=== PATIENT | female | born 1950 | race Caucasian/White ===

== ENCOUNTER 2016-07-30 09:04 | Inpatient (IN) ==
--- NOTE | 2016-07-30 09:37 | Emergency Department Note ---
Disposition Clinical Impression: Atrial fibrillation with rapid ventricular response, Weakness GI bleed Qualifiers: GI bleed type/associated pathology: unspecified gastrointestinal hemorrhage type Qualified Code(s): K92.2 - Gastrointestinal hemorrhage, unspecified Disposition: Admitted As Inpatient Condition: Good Time of Disposition: 12:58 Weakness HPI - General Chief complaint: ED Weakness Stated complaint: weakness Time Seen by Provider: 07/30/16 09:17 Source: patient Mode of arrival: ambulatory Limitations: no limitations Nursing Notes Reviewed: Yes Vital Signs Reviewed: Yes - History of Present Illness HPI Narrative: 66-year-old female history of atrial fibrillation on Coumadin and rate controlled presents to the ED with weakness. Patient states yesterday while at a bridal shower she was sitting at rest when she felt her heart racing, diaphoretic and nauseated while at rest. She denies any chest pain at that time. She also felt weak in her legs. Reports last time she had similar symptoms was back in December 2014 when she first had atrial fibrillation and needed admission for rate control. She follows with Dr. Palafox and has her INR' s checked frequently. No changes in her metoprolol or Cardizem. Denies any fever, recent illness, cough, shortness of breath. She also reports since she has noticed black tarry stools. She did eat cake with black icing and initially thought this may be due to the food coloring but continues to have black stools last 4 days. Denies any lightheadedness, abdominal pain or loss of consciousness. Currently she is in atrial fibrillation HR 110-120s, normally is in 70s. Last time 01/2015 she had a [place] which reveals a JAMEOSN thrombus with EF 50%. Pain Scale: 0 - Related Data Home Medications Medication Instructions Recorded Confirmed Cholecalciferol (Vitamin D3) 1,000 unit PO DAILY 05/10/15 07/30/16 [Vitamin D] Furosemide [Lasix] 20 mg PO DAILY PRN 05/10/15 07/30/16 Diltiazem HCl [Diltiazem 24Hr Cd] 360 mg PO DAILY 07/30/16 07/30/16 Warfarin [Coumadin] 4 mg PO QPM 07/30/16 07/30/16 Previous Rx's Medication Instructions Recorded Metoprolol [Lopressor] 100 mg PO BID #42 tablet 01/01/15 Allergies Allergy/AdvReac Type Severity Reaction Status Date / Time alprazolam [From Xanax] Allergy Anaphylaxis Verified 12/28/14 01:18 Amoxicillin [From Trimox] Allergy Anaphylaxis Verified 07/30/16 13:58 All systems ED: reviewed and negative except as stated. Constitutional: Reports: chills. Denies: fever ENT ED: Denies: congestion Cardiovascular: Denies: chest pain, palpitations, dyspnea on exertion Respiratory: Denies: cough, dyspnea Gastrointestinal: Reports: nausea, melena. Denies: abdominal pain, vomiting, diarrhea, hematochezia Genitourinary: Denies: urgency, dysuria, frequency Integumentary: Denies: rash, abrasion Neurological: Reports: weakness. Denies: headache Past Medical History - Past Medical History Attestation: Yes The following information was validated with the patient. Source: patient Medical history: Reports: atrial fibrillation, GERD, hypertension, renal disease Surgical history: Reports: no surgical history Psychiatric history: Reports: anxiety KEY PERSON history: Reports: no KEY PERSON history - Social History Smoking Status: Never smoker Smokeless Tobacco Status: No Alcohol use: Reports: none Drug use: Reports: none Physical Exam - General Limitations: no limitations General appearance: alert, in no apparent distress - Head Head exam: atraumatic, normocephalic, normal inspection - Eye Eye exam: Present: normal appearance, PERRL, EOMI - ENT ENT exam: normal exam, normal oropharynx, mucous membranes moist - Neck Neck exam: Present: normal inspection, full ROM, trachea midline - Chest Chest inspection: Present: normal inspection, symmetric chest wall rise - Respiratory Respiratory exam: Present: normal lung sounds bilaterally. Absent: respiratory distress, wheezes - Cardiovascular Cardiovascular exam: Present: tachycardia, irregular rhythm, normal heart sounds - Abdominal Exam Abdominal exam: Present: soft, Non-Tender, normal bowel sounds. Absent: tenderness, distention, guarding, rebound, rigidity - Extremities Exam Extremities exam: Present: normal inspection, full ROM, normal capillary refill , pedal edema (+1 BILATERALLY). Absent: tenderness, calf tenderness - Neurological Exam Neurological exam: Present: alert, oriented X3 - Psychiatric Psychiatric exam: Present: normal affect, normal mood - Skin Skin exam: Present: warm, dry, intact, normal color Course Course Narrative: 66-year-old female history of atrial fibrillation presents to ED with weakness. Patient has had an episode of palpitations, nausea, weakness. She is currently in atrial fibrillation with rapid ventricular response rate 108 as high as 120s. Patients awake alert and oriented to person place and time. Heart is irregularly irregular. Lungs are clear to auscultation bilaterally. Abdomen is soft nontender nondistended. On rectal exam she has normal tone with dark tarry stool. Fecal hemoccult sent down for testing. Will try to get her rate controlled and talk to cardiology. We will get basic labs for arrhythmia work up. Topronin, TSH, CBC, PT/INR. - Reevaluation(s) Reevaluation #1: Hemoglobin 10.7. Her last hemoglobin a year ago was 14.1. INR is therapeutic at 3. Her stool hemoccult is positive. Rate is controlled at 80 without any medications here. She reports taking her metoprolol and cardiazem earlier today. Currently awaiting PICC team for midline. Due to sudden onset of symptoms this week, will admit for GI bleed and Afib. Currently HR is 90-100 without any rate control here after initially presenting 110-120s, normally sits around 70-80s she reports. Time: 12:50 Reevaluation #2: Bed assignment 2NE26. Dr. Alejandra came down to evaluate patient for admission. HR currently 110-120s now. Will start cardiazem drip with bolus for better rate control. Patient does not have any palpitations at this time. Time: 15:59 - Consultations Consultation #1: Spoke with on-call hospitalist samuel Laguna to admit for acute GI bleed, atrial fibrillation c RVR, and weakness. No further orders at this time Vitals remain stable, HR 80-90s. Time: 12:55 Vital Signs Temperature 98.1 F 07/30/16 09:11 Pulse Rate 115 07/30/16 09:11 Respiratory Rate 18 07/30/16 09:11 Blood Pressure 120/98 07/30/16 09:11 O2 Sat by Pulse Oximetry 98 07/30/16 09:11 Temperature 98.1 F 07/30/16 09:11 Pulse Rate 185 07/30/16 14:32 Respiratory Rate 20 07/30/16 15:01 Blood Pressure 96/71 07/30/16 15:01 O2 Sat by Pulse Oximetry 99 07/30/16 14:32 Oxygen Delivery Oxygen Delivery Room Air Weakness - Medical Records Medical records reviewed: Yes I reviewed the patient's medical records. - Lab Data Lab results reviewed: Yes I reviewed the patient's lab results. Result diagrams: 07/30/16 10:27 07/30/16 10:27 Lab Results 07/30/16 07/30/16 07/30/16 Range/Units 10:22 10:27 10:27 WBC 7.3 (4.3-11.1) K/mcL RBC 3.64 L (3.82-4.97) M/mcL Hgb 10.7 L (11.5-15.4) g/dL Hct 32.4 L (35.3-44.9) % MCV 89.0 (83.0-100.0) fL MCH 29.4 (28.0-33.3) pg MCHC 33.0 (31.6-35.5) g/dL RDW 13.3 (11.5-14.5) % Plt Count 172 (140-400) K/mcL MPV 12.4 (9.4-12.4) fL Immature Gran % 0.6 (0-4) % Seg Neutrophils % 76.6 % Lymphocytes % 17.1 % Monocytes % 4.5 % Eosinophils % 0.6 % Basophils % 0.6 % Neutrophils # 5.6 (1.6-8.9) K/mcL Lymphocytes # 1.2 (0.6-4.6) K/mcL Monocytes # 0.3 (0.0-1.3) K/mcL Eosinophils # 0.0 (0.0-0.6) K/mcL Basophils # 0.0 (0.0-0.2) K/mcL PT 34.0 H (9.4-12.1) Seconds INR 3.0 APTT 35.0 (26.0-36.0) Seconds Sodium (136-145) mEq/L Potassium (3.5-4.5) mEq/L Chloride (98-109) mEq/L Carbon Dioxide (19-29) mEq/L BUN (7-20) mg/dL Creatinine (0.57-1.11) mg/dL Est GFR ( Amer) (> 60) Est GFR (Non-Af Amer) (> 60) BUN/Creatinine Ratio (6-26) Glucose (70-99) mg/dL Calculated Osmolality (280-300) Calcium (8.6-10.8) mg/dL Troponin I (0-0.03) ng/mL TSH (0.350-4.840) mcIU/mL Stool Occult Blood Positive A (Negative) 07/30/16 07/30/16 Range/Units 10:27 10:27 WBC (4.3-11.1) K/mcL RBC (3.82-4.97) M/mcL Hgb (11.5-15.4) g/dL Hct (35.3-44.9) % MCV (83.0-100.0) fL MCH (28.0-33.3) pg MCHC (31.6-35.5) g/dL RDW (11.5-14.5) % Plt Count (140-400) K/mcL MPV (9.4-12.4) fL Immature Gran % (0-4) % Seg Neutrophils % % Lymphocytes % % Monocytes % % Eosinophils % % Basophils % % Neutrophils # (1.6-8.9) K/mcL Lymphocytes # (0.6-4.6) K/mcL Monocytes # (0.0-1.3) K/mcL Eosinophils # (0.0-0.6) K/mcL Basophils # (0.0-0.2) K/mcL PT (9.4-12.1) Seconds INR APTT (26.0-36.0) Seconds Sodium 140 (136-145) mEq/L Potassium 4.0 (3.5-4.5) mEq/L Chloride 107 (98-109) mEq/L Carbon Dioxide 25 (19-29) mEq/L BUN 45 H (7-20) mg/dL Creatinine 1.09 (0.57-1.11) mg/dL Est GFR ( Amer) > 60 (> 60) Est GFR (Non-Af Amer) 50 L (> 60) BUN/Creatinine Ratio 41 H (6-26) Glucose 102 H (70-99) mg/dL Calculated Osmolality 302 H (280-300) Calcium 9.2 (8.6-10.8) mg/dL Troponin I 0.00 (0-0.03) ng/mL TSH 1.639 (0.350-4.840) mcIU/mL Stool Occult Blood (Negative) - Radiology Data Radiology results reviewed: Yes I reviewed the patient's radiology results. Chest X-Ray 07/30/16 09:30 IMPRESSION: No acute cardiopulmonary process. Stable chest x-ray. D/ / Ping Aragon MD / Ping Aragon MD Interpreting Provider: Ping Aragon MD - EKG Data EKG attestation: Yes I reviewed and interpreted this EKG. EKG results narrative: EKG performed 919 atrial fibrillation with rapid ventricular response 108 beats per minute. Rate: tachycardia Rhythm: A.Fib Interpretation: no acute changes Critical Care Time Critical Care Time: Yes Total Critical Care Time: 35 Attestation: Critical care time 35 minutes managing patient's A. fib with RVR and GI bleed. Attestation Statement - Attestation Attestation: Patient was seen with resident physician. I reviewed the history, physical, assessment and plan, and agree with the findings. I also personally evaluated this patient and had [id number] time with this patient. 66-year-old female presents emergency Department with atrial fibrillation. Patient states she has had A. fib for some time, has had a rapid response last time in 2013. She says symptoms are of rapid heartbeat combined with sweating. She said she had 2 episodes one lasted yesterday and then once again today. She said she took her morning medicines hoping she will feel better but it is not resolved her issues. She said the swelling has dissipated but she still feels her heart going faster than it usually does. She denies chest pain or short of breath. She did nausea without vomiting. On examination ENT is unremarkable. Heart tachycardic irregular irregular rhythm. [place] with atrial fibrillation. Lungs are clear. Abdomen is soft and nontender. Extremities minimal swelling of the ankles which is not new per patient. Neurologically patient is intact. We will do workup for atrial fibrillation. We will need to get a midline IV as she is a difficult IV stick and requires medication to control her rate. Workup revealed decreased H&H from prior testing, and Hemoccult-positive stool. Her rate was controlled with Cardizem. Hemodynamically she did well on the emergency department but with a GI bleed and A. fib she required hospitalization. Critical care time was 35 minutes to manage. Blood pressure was stable throughout her stay. Hospitalist was notified and admission arranged. I agree with the resident physician assessment and plan.
[2016-07-30 10:52] LABS: Basophils % 0.6 %; Eosinophils % 0.6 %; Hematocrit 32.4 % (35.3-44.9); Hemoglobin 10.7 g/dL (11.5-15.4); Immature Granulocytes % 0.6 % (0-4); Lymphocytes # 1.2 K/mcL (0.6-4.6); Lymphocytes % 17.1 %; Mean Corpuscular Hemoglobin 29.4 pg (28.0-33.3); Mean Platelet Volume 12.4 fL (9.4-12.4); Monocytes # 0.3 K/mcL (0.0-1.3); Monocytes % 4.5 %; Neutrophils # 5.6 K/mcL (1.6-8.9); Platelet Count 172 K/mcL (140-400); Red Blood Count 3.64 M/mcL (3.82-4.97); Red Cell Distribution Width 13.3 % (11.5-14.5); Segmented Neutrophils % 76.6 %
[2016-07-30 11:04] LABS: BUN/Creatinine Ratio 41 (6-26); Blood Urea Nitrogen 45 mg/dL (7-20); Calcium 9.2 mg/dL (8.6-10.8); Carbon Dioxide 25 mEq/L (19-29); Chloride 107 mEq/L (98-109); Glucose 102 mg/dL (70-99); Osmolality,Calculated 302 (280-300); Sodium 140 mEq/L (136-145); eGFR For African Americans > 60 (> 60); eGFR For Non-African Americans 50 (> 60)
[2016-07-30 11:27] LABS: Thyroid Stimulating Hormone 1.639 mcIU/mL (0.350-4.840)
[2016-07-30] MEDS ORDERED: 0.9 % Sodium Chloride 1,000 ML IVC ONE (13:09)
[2016-07-30] MEDS ORDERED: Naloxone 0.4 MG/ML INJ IVP PRN (18:05)
[2016-07-30] MEDS ORDERED: *HR* Morphine 2 MG/ML SYRINGE IVP PRN (18:05)
--- NOTE | 2016-07-30 18:18 | Internal Med History&Physical ---
Date of Encounter: 07/30/16 Time of Encounter: 18:14 Assessment and Plan (1) GI bleed Status: Acute GI Bleed.: NOted that stool occult is positive but there is drop in Hb 14.1 to 10.7 patient on Coumadin for Afib INR 3 Plan: - admit as inpatient. - 2 wide bore IV - IV fluids 70cc/hr - IV PPI 40 mg BID - Transfuse 4 FFP. - GI consult ( spoke with Dr Linder) - Stop Coumadin -DVT prophylaxis : SCD Qualifiers: GI bleed type/associated pathology: unspecified gastrointestinal hemorrhage type Qualified Code(s): K92.2 - Gastrointestinal hemorrhage, unspecified (2) Atrial fibrillation Status: Acute on cardizem drip oral BB Qualifiers: Atrial fibrillation type: chronic Qualified Code(s): I48.2 - Chronic atrial fibrillation (3) Essential hypertension Status: Chronic stable and will resume home meds Internal Medicine - H&P: HPI Chief complaint: GI bleed Admitted From: Emergency Dept Plans for Post Hospital Care: Home History of present illness: PCP: Dr Lay aviation mechanic : (mrs) Clay Brief PMH: HTN, Afib HPI:Patient states yesterday while at a bridal shower she was sitting at rest when she felt her heart racing, diaphoretic and nauseated while at rest. She denies any chest pain at that time. She also felt weak in her legs. she noticed since she has noticed black tarry stools. work up in ER: basic labs, EKG reason for hospitalization : Lower GI bleed. family History : non contributory. Past Med Surg Social Fam HX - Past Medical History Medical history: atrial fibrillation, GERD, hypertension, renal disease Psychiatric history: anxiety - Past Surgical History Surgical History: no surgical history - Social History Smoking Status: Never smoker Smokeless Tobacco Status: No Alcohol use: none Drug use: none - Family History Mother Adopted: No Family Member Ethnicity: Non- Living Status: Hx Family Cardiac Disorders: Yes Internal Medicine - H&P: Meds Metoprolol [Lopressor] 100 mg PO BID #42 tablet 01/01/15 [Rx] Cholecalciferol (Vitamin D3) [Vitamin D3] 1,000 unit PO DAILY 05/10/15 [History] Diltiazem HCl [Diltiazem 24Hr Cd] 360 mg PO DAILY 07/30/16 [History] Omeprazole [PriLOSEC] 40 mg PO DAILY@0630 #30 capsule. 08/03/16 [Rx] Sucralfate [Carafate] 1 gm PO 0730,1630 #30 tablet 08/03/16 [Rx] Allergies alprazolam [From Xanax] Allergy (Verified 12/28/14 01:18) Anaphylaxis Amoxicillin [From Trimox] Allergy (Verified 07/30/16 13:58) Anaphylaxis All Systems PM: A 10-system review of systems was performed and is negative for pertinent findings except as documented above in the HPI. - Constitutional Constitutional: no chills, no fever(s), no night sweats - EENT Eyes: no change in vision, no discharge, no pain, no photophobia Ears: no ear discharge, no ear pain, no tinnitus Nose, mouth and throat: no dysphagia, no nasal discharge, no neck pain, no sore throat - Cardiovascular Cardiovascular ROS IM: no chest pain, no diaphoresis, no dyspnea, no lightheadedness, no palpitations, no syncope - Respiratory Respiratory: no cough, no dyspnea, no wheezing, no excessive phlegm production - Gastrointestinal Gastrointestinal: no abdominal pain, no diarrhea, no hematemesis, no hematochezia, no melena, no nausea, no vomiting - Genitourinary Genitourinary: no change in urinary stream, no dysuria, no flank pain, no hematuria - Musculoskeletal Musculoskeletal ROS IM: no numbness, no tingling - Integumentary Integumentary IM: no rash, no unusual bruising - Neurological Neurological ROS: no confusion, no convulsions, no focal weakness, no numbness, no tingling, no tremor(s) - Hematologic/Lymphatic Hematologic/Lymphatic: no easy bruising - Constitutional Vitals: Temp Pulse Resp BP Pulse Ox 98.3 F 118 17 107/70 98 07/30/16 16:50 07/30/16 16:50 07/30/16 16:50 07/30/16 16:50 07/30/16 16:50 General appearance: Present: A&O X 3, pleasant, no acute distress, answers questions appropriately - Head Head exam: Present: atraumatic, normocephalic - Eye Eye exam: Present: PERRL, conjuntiva pink, sclera anicteric Pupils: Present: PERRL - Neck Neck exam general surgery: Present: supple, trachea midline. Absent: lymphadenopathy - Respiratory Respiratory exam: Present: CTAB. Absent: accessory muscle use, rales, rhonchi, wheezes - Cardiovascular Cardiovascular exam: Present: RRR, +S1, +S2. Absent: diastolic murmur, gallop, rubs, systolic murmur - GI/Abdominal GI/Abdominal exam: Present: normal bowel sounds, soft, no peritoneal signs. Absent: distended, tenderness - Extremities Exam Extremities exam: Present: warm, radial pulses palpable and symetrical. Absent : calf tenderness, cyanotic, pedal edema - Neurological Exam Neurological exam: Present: CN II-XII intact, oriented X3, no focal deficits. Absent: pronater drift, facial droop, speech deficit - Skin Skin exam: Present: dry, intact Internal Med - H&P Results - Labs CBC & Chem 7: 08/03/16 05:25 08/02/16 06:32
[2016-07-30 19:12] LABS: Basophils % 0.5 %; Eosinophils # 0.1 K/mcL (0.0-0.6); Eosinophils % 1.3 %; Hematocrit 28.7 % (35.3-44.9); Hemoglobin 9.4 g/dL (11.5-15.4); Immature Granulocytes % 0.3 % (0-4); Lymphocytes # 2.2 K/mcL (0.6-4.6); Lymphocytes % 35.2 %; Mean Corpuscular HGB Conc 32.8 g/dL (31.6-35.5); Mean Corpuscular Volume 88.6 fL (83.0-100.0); Mean Platelet Volume 12.3 fL (9.4-12.4); Monocytes # 0.4 K/mcL (0.0-1.3); Monocytes % 6.2 %; Neutrophils # 3.6 K/mcL (1.6-8.9); Platelet Count 151 K/mcL (140-400); Red Blood Count 3.24 M/mcL (3.82-4.97); Red Cell Distribution Width 13.3 % (11.5-14.5); Segmented Neutrophils % 56.5 %
[2016-07-30] MEDS: 0.9 % Sodium Chloride 1,000 ML IVC SCH (20:24)
[2016-07-30] MEDS: Metoprolol 100 MG TABLET PO SCH (20:24)
[2016-07-30] MEDS ORDERED: Acetaminophen 325 MG TABLET PO ONE (21:53)
[2016-07-30] MEDS ORDERED: Furosemide 20 MG/2 ML VIAL IVP ONE (21:53)
[2016-07-30] MEDS ORDERED: 0.9 % Sodium Chloride 250 ML ONE (23:12)
--- NOTE | 2016-07-31 03:56 | Electrocardiograph Report ---
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
[2016-07-31] MEDS ORDERED: 0.9 % Sodium Chloride 250 ML ONE ×3 (04:22→22:18)
[2016-07-31 04:50] LABS: Basophils % 0.3 %; Eosinophils # 0.1 K/mcL (0.0-0.6); Hematocrit 26.7 % (35.3-44.9); Hemoglobin 8.7 g/dL (11.5-15.4); Immature Granulocytes % 0.3 % (0-4); Lymphocytes # 1.7 K/mcL (0.6-4.6); Lymphocytes % 29.2 %; Mean Corpuscular HGB Conc 32.6 g/dL (31.6-35.5); Mean Platelet Volume 11.9 fL (9.4-12.4); Monocytes # 0.4 K/mcL (0.0-1.3); Monocytes % 6.8 %; Neutrophils # 3.6 K/mcL (1.6-8.9); Platelet Count 139 K/mcL (140-400); Red Cell Distribution Width 13.6 % (11.5-14.5); Segmented Neutrophils % 61.4 %
[2016-07-31 04:53] LABS: INR 2.2; Prothrombin Time 24.7 Seconds (9.4-12.1)
[2016-07-31 05:08] LABS: Alanine Aminotransferase 15 Units/L (0-55); Albumin 3.1 g/dL (3.5-5.0); Albumin/Globulin Ratio 1.2 (1.1-2.2); Alkaline Phosphatase 58 Units/L (38-126); Aspartate Amino Transferase 15 Units/L (5-34); BUN/Creatinine Ratio 25 (6-26); Bilirubin,Total 0.6 mg/dL (0.2-1.2); Calcium 8.3 mg/dL (8.6-10.8); Carbon Dioxide 25 mEq/L (19-29); Chloride 108 mEq/L (98-109); Chol/HDL Ratio 3.1 (0-4.9); Cholesterol 160 mg/dL (< 200); Globulin 2.6 g/dL (2.4-3.5); Glucose 92 mg/dL (70-99); HDL Cholesterol 51 mg/dL (40-59); LDL Cholesterol,Calculated 91 mg/dL (0-99); Magnesium 1.6 mg/dL (1.6-2.6); Osmolality,Calculated 299 (280-300); Phosphorous 3.3 mg/dL (2.3-4.7); Potassium 3.6 mEq/L (3.5-4.5); Sodium 142 mEq/L (136-145); Total Protein 5.7 g/dL (6.0-8.3); Triglycerides 88 mg/dL (< 150); eGFR For African Americans > 60 (> 60); eGFR For Non-African Americans 50 (> 60)
[2016-07-31 05:09] LABS: Blood Urea Nitrogen 27 mg/dL (7-20)
[2016-07-31] MEDS: Pantoprazole 40 MG VIAL IVP SCH ×2 (06:31→17:58)
[2016-07-31] MEDS: Metoprolol 100 MG TABLET PO SCH ×2 (09:47→20:08)
--- NOTE | 2016-07-31 12:08 | Gastroenterology Consult Note ---
<Ludin Davey Raquel - Last Filed: 07/31/16 12:02> Date of Encounter: 07/31/16 Time of Encounter: 10:20 - Assessment and plan (1) GI bleed Current Visit: Yes Status: Acute Assessment and plan: Continue to hold Coumadin. FOBT positive. Plan for EGD tomorrow to r/o esophagitis, gastritis, duodenitis, PUD, MW tear, or AVM once INR less than 1.5. INR 2.2 today and patient is receiving FFP. NPO at midnight Qualifiers: GI bleed type/associated pathology: unspecified gastrointestinal hemorrhage type Qualified Code(s): K92.2 - Gastrointestinal hemorrhage, unspecified (2) Melena Current Visit: Yes Status: Acute (3) Atrial fibrillation Current Visit: No Status: Acute Qualifiers: Atrial fibrillation type: chronic Qualified Code(s): I48.2 - Chronic atrial fibrillation (4) Anemia Current Visit: Yes Status: Acute Assessment and plan: Secondary to GI bleeding. Hemoglobin 10.7 on admission and 8.7 this morning. Continue to monitor CBC and transfuse PRBC as needed. Plan for EGD tomorrow. Qualifiers: Anemia type: iron deficiency Iron deficiency anemia type: chronic blood loss Qualified Code(s): D50.0 - Iron deficiency anemia secondary to blood loss (chronic) - Time Spent With Patient Total time spent is greater than 50% in coordination of care (as documented) at patient's floor/unit and/or counseling patient: GI History of Present Illness - Data of Consult Patient: new to practice Consult date: 07/31/16 Requesting Physician: Zohra Rivas MD - Consult Narrative Reason for consult: GI Bleed History of present illness: Ms. Tsai is a 66 year old female with PMHx of Afib-on Coumadin, GERD, and HTN who presented to the ED with weakness. She was at a bridal shower when she felt her heart racing, became diaphoretic and nauseated. She denied chest pain at that time but did report feeling weak in her legs. She denies fever, shortness of breath, hematemesis, abdominal pain, hematochezia. She does report melena since , but thought this was due to eating cake with black icing. She continued to have black stools for the past 4 days. Hgb 10.7 on admission and this morning Hgb 8.7. INR on admission 3, Coumadin has been held and INR 2.2 this morning. FOBT was positive. Procedures: Colonoscopy 06/28/2014 Dr. Lin with moderate diverticulosis in sigmoid colon, nonbleeding internal hemorrhoids. NSAIDs: None Anticoagulation: Coumadin Past Med Surg Social Fam HX - Past Medical History Medical history: atrial fibrillation, GERD, hypertension, renal disease Psychiatric history: anxiety - Past Surgical History Surgical History: no surgical history - Social History Smoking Status: Never smoker Smokeless Tobacco Status: No Alcohol use: none Drug use: none - Family History Mother Adopted: No Family Member Ethnicity: Non- Living Status: Hx Family Cardiac Disorders: Yes - Gastrointestinal Gastrointestinal: Present: as per HPI - Constitutional Constitutional: as per HPI - EENT Eyes: as per HPI Ears: Present: as per HPI Nose, mouth and throat: Present: as per HPI - Cardiovascular Cardiovascular ROS: Present: as per HPI - Respiratory Respiratory IM: Present: as per HPI - Genitourinary Genitourinary: Absent: change in color, Urinary frequency - Neurological ROS Neurological GI: Present: as per HPI - Hematologic/Lymphatic Hematologic/Lymphatic pediatric: Present: as per HPI - Musculoskeletal Musculoskeletal ROS GI: Present: as per HPI - Integumentary Integumentary GI: Present: as per HPI - Psychiatric ROS Psychiatric GI: Present: as per HPI - Endocrine Endocrine IM: Present: as per HPI - Constitutional Vitals: Temp Pulse Resp BP Pulse Ox 98.5 F 109 16 123/70 96 07/31/16 10:55 07/31/16 10:55 07/31/16 10:55 07/31/16 10:55 07/31/16 10:55 General appearance: Present: cooperative, A&O X 3, no acute distress, answers questions appropriately - Head Head exam: Present: atraumatic, normocephalic - Eye Eye exam: Present: normal appearance, sclera anicteric - ENT ENT exam: Present: mucous membranes moist - Neck Neck exam general surgery: Present: normal inspection, trachea midline - Respiratory Respiratory exam: Present: CTAB. Absent: rales, rhonchi - Cardiovascular Cardiovascular exam: Present: RRR, +S1, +S2 - GI/Abdominal GI/Abdominal exam: Present: soft, no peritoneal signs. Absent: distended, firm , guarding, tenderness - Rectal Rectal exam: Present: deferred - Extremities Exam Extremities exam: Present: warm - Neurological Exam Neurological exam: Present: no focal deficits - Psychiatric Psychiatric exam: Present: normal affect, normal mood - Skin Skin exam: Present: dry, intact, normal color, warm Results - Labs CBC & Chem 7: 07/31/16 04:35 07/31/16 04:35 Labs: Last Result Calcium 8.3 mg/dL (8.6-10.8) L 07/31/16 04:35 Troponin I 0.00 ng/mL (0-0.03) 07/31/16 04:35 Triglycerides 88 mg/dL (< 150) 07/31/16 04:35 Stool Occult Blood Positive (Negative) A 07/30/16 10:22 Entire Visit Hgb 8.7 g/dL (11.5-15.4) L 07/31/16 04:35 Hct 26.7 % (35.3-44.9) L 07/31/16 04:35 PT 24.7 Seconds (9.4-12.1) H 07/31/16 04:35 Total Bilirubin 0.6 mg/dL (0.2-1.2) 07/31/16 04:35 AST 15 Units/L (5-34) 07/31/16 04:35 ALT 15 Units/L (0-55) 07/31/16 04:35 - ABG ABG results: PT/INR, D-dimer PT 24.7 Seconds (9.4-12.1) H 07/31/16 04:35 Consult Discharge Plan - Plan Referrals: Xi Astudillo MD [Primary Care Provider] - 08/10/16 1:45 pm <Anabella Linder - Last Filed: 07/31/16 17:22> Date of Encounter: 07/31/16 Time of Encounter: 14:00 - Time Spent With Patient Total time spent is greater than 50% in coordination of care (as documented) at patient's floor/unit and/or counseling patient: GI History of Present Illness - Data of Consult Requesting Physician: Zohra Rivas MD - Consult Narrative History of present illness: Ms. Tsai is a 66 year old female - Constitutional Vitals: Temp Pulse Resp BP Pulse Ox 97.8 F 108 18 101/77 96 07/31/16 13:57 07/31/16 15:00 07/31/16 15:00 07/31/16 15:00 07/31/16 15:00 Results - Labs CBC & Chem 7: 07/31/16 04:35 07/31/16 04:35 Labs: Last Result Calcium 8.3 mg/dL (8.6-10.8) L 07/31/16 04:35 Troponin I 0.00 ng/mL (0-0.03) 07/31/16 04:35 Triglycerides 88 mg/dL (< 150) 07/31/16 04:35 Stool Occult Blood Positive (Negative) A 07/30/16 10:22 Entire Visit Hgb 8.7 g/dL (11.5-15.4) L 07/31/16 04:35 Hct 26.7 % (35.3-44.9) L 07/31/16 04:35 PT 24.7 Seconds (9.4-12.1) H 07/31/16 04:35 Total Bilirubin 0.6 mg/dL (0.2-1.2) 07/31/16 04:35 AST 15 Units/L (5-34) 07/31/16 04:35 ALT 15 Units/L (0-55) 07/31/16 04:35 - ABG ABG results: PT/INR, D-dimer PT 24.7 Seconds (9.4-12.1) H 07/31/16 04:35 - Attending Attestation I examined this patient and my medical decision-making was reviewed with the STATISTICAL CONSULTANT/PA/Advanced Practice Nurse/Resident Physician. I agree with the documented findings, disposition and treatment plan as described except to the extent set forth below.
[2016-07-31] MEDS: 0.9 % Sodium Chloride 1,000 ML IVC SCH (16:09)
[2016-07-31 17:26] LABS: INR 1.8; Prothrombin Time 19.5 Seconds (9.4-12.1)
[2016-07-31 17:27] LABS: % Iron Saturation 21 % (15-50); Iron 67 mcg/dL (50-170); Transferrin 228 mg/dL (180-382)
[2016-07-31 17:30] LABS: Basophils % 0.3 %; Eosinophils # 0.1 K/mcL (0.0-0.6); Eosinophils % 2.3 %; Hematocrit 22.1 % (35.3-44.9); Immature Granulocytes % 0.3 % (0-4); Lymphocytes # 1.3 K/mcL (0.6-4.6); Lymphocytes % 33.8 %; Mean Corpuscular HGB Conc 31.7 g/dL (31.6-35.5); Mean Corpuscular Volume 91.7 fL (83.0-100.0); Mean Platelet Volume 12.3 fL (9.4-12.4); Monocytes # 0.3 K/mcL (0.0-1.3); Monocytes % 6.3 %; Neutrophils # 2.3 K/mcL (1.6-8.9); Platelet Count 120 K/mcL (140-400); Red Blood Count 2.41 M/mcL (3.82-4.97); Red Cell Distribution Width 13.5 % (11.5-14.5)
[2016-07-31 17:48] LABS: Ferritin 49 ng/ml (5-204)
[2016-07-31] MEDS ORDERED: *HR* Phytonadione 10 MG/ML AMPUL SQ STA (17:59)
--- NOTE | 2016-07-31 18:00 | Internal Med Progress Note ---
Date of Encounter: 07/31/16 Time of Encounter: 10:00 - Assessment and plan (1) Anemia due to acute blood loss Current Visit: Yes Status: Acute Assessment and plan: Due to GI bleeding. Possibly caused by anticoagulation use. Will give 2 units PRBC transfusion, follow-up H&H (2) GI bleed Current Visit: Yes Status: Acute Assessment and plan: Patient has black stool and positive guaiac test. H&H has dropped. We will hold the Coumadin, give FFP 4, vitamin K 5 mg SC, PPI IV twice a day. GI consul on case and plan for EGD. Qualifiers: GI bleed type/associated pathology: unspecified gastrointestinal hemorrhage type Qualified Code(s): K92.2 - Gastrointestinal hemorrhage, unspecified (3) Melena Current Visit: Yes Status: Acute Assessment and plan: Due to GI bleeding (4) Atrial fibrillation Current Visit: No Status: Acute Assessment and plan: Rite is a generally controlled. Coumadin is on hold because of GI bleeding Qualifiers: Atrial fibrillation type: chronic Qualified Code(s): I48.2 - Chronic atrial fibrillation (5) Essential hypertension Current Visit: No Status: Chronic Assessment and plan: BP is at the lower side. Hold hypertension medications (6) DVT prophylaxis Current Visit: Yes Status: Acute Assessment and plan: EPCD - Time Spent With Patient 25 - 35 minutes - Subjective Interval history: Patient is a 66-year-old female admitted for GI bleeding. Her past medical history is significant for A. fib on Coumadin, hypertension. Patient was seen and examined. She denies dizziness or lightheaded. She has no vomiting. Patient has black stool. She was given FFP to correct Coumadin effect. Still active bleeding with hemoglobin dropped to 7. Will give 2 units PRBC. GI consul on case, plan for EGD tomorrow if INR is getting lower than 1.5. Will also give vitamin K 5 mg SC today. - Constitutional Vitals: Temp Pulse Resp BP Pulse Ox 97.8 F 108 18 101/77 96 07/31/16 13:57 07/31/16 15:00 07/31/16 15:00 07/31/16 15:00 07/31/16 15:00 General appearance: Present: A&O X 3, pleasant, no acute distress, answers questions appropriately - Head Head exam: Present: atraumatic, normocephalic - Eye Eye exam: Present: PERRL, conjuntiva pink, sclera anicteric Pupils: Present: PERRL - Neck Neck exam general surgery: Present: supple, trachea midline. Absent: lymphadenopathy - Respiratory Respiratory exam: Present: CTAB. Absent: accessory muscle use, rales, rhonchi, wheezes - Cardiovascular Cardiovascular exam: Present: irregular rhythm, +S1, +S2. Absent: diastolic murmur, gallop, rubs, systolic murmur - GI/Abdominal GI/Abdominal exam: Present: normal bowel sounds, soft, no peritoneal signs. Absent: distended, tenderness - Extremities Exam Extremities exam: Present: warm, radial pulses palpable and symetrical. Absent : calf tenderness, cyanotic, pedal edema - Neurological Exam Neurological exam: Present: CN II-XII intact, oriented X3, no focal deficits. Absent: pronater drift, facial droop, speech deficit - Skin Skin exam: Present: dry, intact Internal Medicine: Result - Labs CBC & Chem 7: 07/31/16 16:24 07/31/16 04:35 Labs: Short CBC 07/30/16 07/31/16 07/31/16 Range/Units 18:30 04:35 16:24 WBC 6.3 5.9 4.0 L (4.3-11.1) K/mcL Hgb 9.4 L 8.7 L 7.0 L D (11.5-15.4) g/dL Hct 28.7 L 26.7 L 22.1 L (35.3-44.9) % Plt Count 151 139 L 120 L (140-400) K/mcL Neutrophils # 3.6 3.6 2.3 (1.6-8.9) K/mcL BMP 07/31/16 04:35 Sodium 142 Potassium 3.6 Chloride 108 Carbon Dioxide 25 BUN 27 H D Creatinine 1.09 Glucose 92 Calcium 8.3 L Cardiac Enzymes 07/30/16 07/31/16 07/31/16 Range/Units 18:30 04:35 16:24 Troponin I 0.00 0.00 0.00 (0-0.03) ng/mL Liver Function 07/31/16 Range/Units 04:35 Total Bilirubin 0.6 (0.2-1.2) mg/dL AST 15 (5-34) Units/L ALT 15 (0-55) Units/L Alkaline Phosphatase 58 (38-126) Units/L Albumin 3.1 L (3.5-5.0) g/dL - ABG Interpretation ABG results: PT/INR, D-dimer PT 19.5 Seconds (9.4-12.1) H 07/31/16 16:24 - VTE Documentation of Mechanical Device: Graduated compression elastic hosiery Consult Discharge Plan - Plan Referrals: Xi Astudillo MD [Primary Care Provider] - 08/10/16 1:45 pm
[2016-07-31 18:25] LABS: Bilirubin,Urine Negative (Negative); Blood,Urine Negative (Negative); Clarity,Urine Clear (Clear); Color,Urine Yellow (Yellow); Glucose,Urine (UA) Normal (Normal); Ketones,Urine Trace mg/dL (Negative); Leukocyte Esterase,Urine Negative (Negative); Nitrite,Urine Negative (Negative); Protein,Urine Trace mg/dL (Neg-Trace); Specific Gravity,Urine 1.018 (1.010-1.025); Urobilinogen,Urine Normal (Normal)
[2016-07-31 18:29] LABS: Bacteria,Urine None Seen per hpf (None-Few); Hyaline Casts,Urine None Seen per lpf (None-Few); RBC,Urine 0-3 per hpf (0-3); Squamous Epithelial Cell,Urine Moderate per lpf (None-Few); WBC,Urine 0-3 per hpf (0-3)
[2016-08-01] MEDS: 0.9 % Sodium Chloride 1,000 ML IVC SCH (06:01)
[2016-08-01] MEDS: Pantoprazole 40 MG VIAL IVP SCH ×2 (06:01→16:19)
[2016-08-01 06:21] LABS: Basophils % 0.5 %; Eosinophils # 0.2 K/mcL (0.0-0.6); Eosinophils % 2.7 %; Hematocrit 32.1 % (35.3-44.9); Immature Granulocytes % 0.5 % (0-4); Lymphocytes # 2.2 K/mcL (0.6-4.6); Lymphocytes % 36.6 %; Mean Corpuscular HGB Conc 33.6 g/dL (31.6-35.5); Mean Corpuscular Hemoglobin 29.9 pg (28.0-33.3); Mean Corpuscular Volume 88.9 fL (83.0-100.0); Mean Platelet Volume 11.6 fL (9.4-12.4); Monocytes # 0.5 K/mcL (0.0-1.3); Monocytes % 8.3 %; Neutrophils # 3.1 K/mcL (1.6-8.9); Nucleated Red Blood Cells 0.3 /100 WBC (0); Platelet Count 143 K/mcL (140-400); Red Blood Count 3.61 M/mcL (3.82-4.97); Red Cell Distribution Width 13.5 % (11.5-14.5); Segmented Neutrophils % 51.4 %
[2016-08-01 06:26] LABS: Hemoglobin 10.8 g/dL (11.5-15.4)
[2016-08-01 06:34] LABS: BUN/Creatinine Ratio 15 (6-26); Calcium 8.6 mg/dL (8.6-10.8); Carbon Dioxide 22 mEq/L (19-29); Chloride 110 mEq/L (98-109); Glucose 93 mg/dL (70-99); Osmolality,Calculated 294 (280-300); Potassium 3.5 mEq/L (3.5-4.5); Sodium 142 mEq/L (136-145); eGFR For African Americans > 60 (> 60); eGFR For Non-African Americans > 60 (> 60)
[2016-08-01 06:38] LABS: Blood Urea Nitrogen 14 mg/dL (7-20)
[2016-08-01] MEDS: Metoprolol 100 MG TABLET PO SCH ×2 (09:13→20:13)
[2016-08-01 09:33] LABS: INR 1.7; Prothrombin Time 18.6 Seconds (9.4-12.1)
--- NOTE | 2016-08-01 12:12 | Anesthesia Evaluation PreOp ---
Date of Encounter: 08/01/16 Time of Encounter: 12:09 - Past History Planned Operation: EGD Cardiac History: HTN, Arrhythmia (Afib) Other Medical History: Renal, GERD, Other (GI bleed, Melena) Anesthesia History: Past Anesthesia (none) : No Alcohol Use: none Drug use: none Medications and Allergies Metoprolol [Lopressor] 100 mg PO BID #42 tablet 01/01/15 [Rx] Cholecalciferol (Vitamin D3) [Vitamin D] 1,000 unit PO DAILY 05/10/15 [History] Furosemide [Lasix] 20 mg PO DAILY PRN 05/10/15 [History] Diltiazem HCl [Diltiazem 24Hr Cd] 360 mg PO DAILY 07/30/16 [History] Warfarin [Coumadin] 4 mg PO QPM 07/30/16 [History] Allergies alprazolam [From Xanax] Allergy (Verified 12/28/14 01:18) Anaphylaxis Amoxicillin [From Trimox] Allergy (Verified 07/30/16 13:58) Anaphylaxis - Meds/Allergy Pre-op Review Medications Reviewed: Yes Allergies Reviewed: Yes Anesthesia Results - Labs 08/01/16 06:00 08/01/16 06:00 Stress 03/21/16 EF 69% mild mid apical ischemia Anesthesia Exam O2 Sat Weight 119.7 kg O2 Sat by Pulse Oximetry 97 O2 Sat by Pulse Oximetry 95 O2 Sat by Pulse Oximetry 96 O2 Sat by Pulse Oximetry 97 O2 Sat by Pulse Oximetry 96 O2 Sat by Pulse Oximetry 96 O2 Sat by Pulse Oximetry 97 O2 Sat by Pulse Oximetry 96 O2 Sat by Pulse Oximetry 96 O2 Sat by Pulse Oximetry 96 O2 Sat by Pulse Oximetry 98 O2 Sat by Pulse Oximetry 96 O2 Sat by Pulse Oximetry 97 Vital Signs Temp Pulse Resp BP Pulse Ox 98.1 F 115 18 120/98 98 07/30/16 09:11 07/30/16 09:11 07/30/16 09:11 07/30/16 09:11 07/30/16 09:11 Vital Signs/O2 Sat, Most Current Temp Pulse Resp BP Pulse Ox 97.8 F 101 16 131/82 97 08/01/16 07:00 08/01/16 07:00 08/01/16 07:00 08/01/16 07:00 08/01/16 07:00 Height: 5'5'' Weight: 263# NPO (# of Hours): > 8 hrs Pain Scale: 0 Pain Scale Used: Numeric (1 - 10) - HEENT Pupil (Motor): Pupils equal, EOMI
[2016-08-01] MEDS ORDERED: Lidocaine -MPF 2% 5 ML VIAL INFILT ONE (12:13)
[2016-08-01] MEDS ORDERED: *HR* Propofol 200 MG/20 ML VIAL IVP ONE (12:13)
[2016-08-01] MEDS: Diltiazem CD (24hr) 180 MG CAPSULE PO SCH (12:39)
[2016-08-01] MEDS ORDERED: SODIUM CHLORIDE/NAHCO3/KCL/PEG 4,000 ML SOLN.RECON PO ONE ×2 (13:32)
--- NOTE | 2016-08-01 17:31 | Internal Med Progress Note ---
Date of Encounter: 08/01/16 Time of Encounter: 10:00 - Assessment and plan (1) Anemia due to acute blood loss Current Visit: Yes Status: Acute Assessment and plan: Due to GI bleeding. Possibly caused by anticoagulation use. She was given 2 units PRBC transfusion, H&H improved (2) GI bleed Current Visit: Yes Status: Acute Assessment and plan: Patient has black stool and positive guaiac test. H&H has dropped. We will hold the Coumadin, give FFP 4, vitamin K 5 mg SC, PPI IV twice a day. GI consul on case and plan for EGD. Qualifiers: GI bleed type/associated pathology: unspecified gastrointestinal hemorrhage type Qualified Code(s): K92.2 - Gastrointestinal hemorrhage, unspecified (3) Melena Current Visit: Yes Status: Acute Assessment and plan: Due to GI bleeding (4) Atrial fibrillation Current Visit: No Status: Acute Assessment and plan: Rite is a generally controlled. Coumadin is on hold because of GI bleeding Qualifiers: Atrial fibrillation type: chronic Qualified Code(s): I48.2 - Chronic atrial fibrillation (5) Essential hypertension Current Visit: No Status: Chronic Assessment and plan: BP is at the lower side. Hold hypertension medications (6) DVT prophylaxis Current Visit: Yes Status: Acute Assessment and plan: EPCD - Subjective Interval history: Patient is a 66-year-old female admitted for GI bleeding. Her past medical history is significant for A. fib on Coumadin, hypertension. Patient was seen and examined. She denies dizziness or lightheaded. She has no vomiting. Hemoglobin Up after transfusion. GI consult on case and plan for EGD today. - Constitutional Vitals: Temp Pulse Resp BP Pulse Ox 97.8 F 86 16 121/75 97 08/01/16 15:05 08/01/16 15:05 08/01/16 15:05 08/01/16 15:05 08/01/16 15:05 General appearance: Present: A&O X 3, pleasant, no acute distress, answers questions appropriately - Head Head exam: Present: atraumatic, normocephalic - Eye Eye exam: Present: PERRL, conjuntiva pink, sclera anicteric Pupils: Present: PERRL - Neck Neck exam general surgery: Present: supple, trachea midline. Absent: lymphadenopathy - Respiratory Respiratory exam: Present: CTAB. Absent: accessory muscle use, rales, rhonchi, wheezes - Cardiovascular Cardiovascular exam: Present: RRR, +S1, +S2. Absent: diastolic murmur, gallop, rubs, systolic murmur - GI/Abdominal GI/Abdominal exam: Present: normal bowel sounds, soft, no peritoneal signs. Absent: distended, tenderness - Extremities Exam Extremities exam: Present: warm, radial pulses palpable and symetrical. Absent : calf tenderness, cyanotic, pedal edema - Neurological Exam Neurological exam: Present: CN II-XII intact, oriented X3, no focal deficits. Absent: pronater drift, facial droop, speech deficit - Skin Skin exam: Present: dry, intact Internal Medicine: Result - Labs CBC & Chem 7: 08/01/16 06:00 08/01/16 06:00 Labs: Short CBC 07/31/16 08/01/16 Range/Units 16:24 06:00 WBC 4.0 L 6.0 (4.3-11.1) K/mcL Hgb 7.0 L D 10.8 L D (11.5-15.4) g/dL Hct 22.1 L 32.1 L (35.3-44.9) % Plt Count 120 L 143 (140-400) K/mcL Neutrophils # 2.3 3.1 (1.6-8.9) K/mcL BMP 08/01/16 06:00 Sodium 142 Potassium 3.5 Chloride 110 H Carbon Dioxide 22 BUN 14 D Creatinine 0.91 Glucose 93 Calcium 8.6 Cardiac Enzymes 07/31/16 Range/Units 16:24 Troponin I 0.00 (0-0.03) ng/mL - ABG Interpretation ABG results: PT/INR, D-dimer PT 18.6 Seconds (9.4-12.1) H 08/01/16 09:15 - VTE Documentation of Mechanical Device: Graduated compression elastic hosiery Consult Discharge Plan - Plan Referrals: Diamond Palafox MD [Partnered Physician] - (Follow up in 1- 2 weeks) Xi Astudillo MD [Primary Care Provider] - 08/10/16 1:45 pm
[2016-08-02] MEDS: Pantoprazole 40 MG VIAL IVP SCH ×2 (05:14→18:28)
[2016-08-02 06:47] LABS: Basophils % 0.6 %; Eosinophils # 0.2 K/mcL (0.0-0.6); Eosinophils % 3.3 %; Hematocrit 32.8 % (35.3-44.9); Hemoglobin 10.7 g/dL (11.5-15.4); Immature Granulocytes % 0.4 % (0-4); Lymphocytes # 1.4 K/mcL (0.6-4.6); Lymphocytes % 26.2 %; Mean Corpuscular HGB Conc 32.6 g/dL (31.6-35.5); Mean Corpuscular Hemoglobin 29.2 pg (28.0-33.3); Mean Corpuscular Volume 89.6 fL (83.0-100.0); Mean Platelet Volume 12.7 fL (9.4-12.4); Monocytes # 0.5 K/mcL (0.0-1.3); Neutrophils # 3.2 K/mcL (1.6-8.9); Platelet Count 140 K/mcL (140-400); Red Blood Count 3.66 M/mcL (3.82-4.97); Red Cell Distribution Width 13.6 % (11.5-14.5); Segmented Neutrophils % 60.5 %
[2016-08-02 06:59] LABS: BUN/Creatinine Ratio 9 (6-26); Blood Urea Nitrogen 8 mg/dL (7-20); Calcium 8.7 mg/dL (8.6-10.8); Carbon Dioxide 23 mEq/L (19-29); Chloride 109 mEq/L (98-109); Glucose 90 mg/dL (70-99); Osmolality,Calculated 290 (280-300); Potassium 3.7 mEq/L (3.5-4.5); Sodium 141 mEq/L (136-145); eGFR For African Americans > 60 (> 60); eGFR For Non-African Americans > 60 (> 60)
[2016-08-02] MEDS ORDERED: 0.9 % Sodium Chloride 500 ML ONE (09:28)
[2016-08-02] MEDS: Diltiazem CD (24hr) 180 MG CAPSULE PO SCH (09:35)
[2016-08-02] MEDS: Metoprolol 100 MG TABLET PO SCH ×2 (09:35→20:56)
[2016-08-02] MEDS ORDERED: *HR* Midazolam HCl 5 MG/5 ML VIAL IVP ONE (12:31)
[2016-08-02] MEDS ORDERED: *HR* FentaNYL (PF) 100 MCG/2 ML VIAL ONE (12:31)
[2016-08-02] MEDS: *HR* FentaNYL (PF) 100 MCG/2 ML VIAL IVP PRN ×2 (12:54→12:56)
[2016-08-02] MEDS ORDERED: Simethicone 40 MG/0.6 ML MLS IR ONE (12:54)
[2016-08-02] MEDS ORDERED: *HR* Midazolam HCl 5 MG/5 ML VIAL IVP PRN (12:54)
--- NOTE | 2016-08-02 13:21 | Procedure Note ---
Date of procedure: 08/02/16 Pre-op diagnosis: Melena Procedure: Colon: One small polyp Diverticulosis Rec: Hold coumadin x 7 dasys and then restart Daily PPI Carafate tab BID Can br d/c home
--- NOTE | 2016-08-02 15:59 | Internal Med Progress Note ---
Date of Encounter: 08/02/16 Time of Encounter: 14:00 - Assessment and plan (1) Anemia due to acute blood loss Current Visit: Yes Status: Acute Assessment and plan: Due to GI bleeding. Possibly caused by anticoagulation use. She was given 2 units PRBC transfusion, H&H improved (2) GI bleed Current Visit: Yes Status: Acute Assessment and plan: Patient has black stool and positive guaiac test. H&H has dropped. We will hold the Coumadin, give FFP 4, vitamin K 5 mg SC, PPI IV twice a day. GI consul on case, EGD and colonoscope done, no active bleeding was found. Continue closely monitoring. Qualifiers: GI bleed type/associated pathology: unspecified gastrointestinal hemorrhage type Qualified Code(s): K92.2 - Gastrointestinal hemorrhage, unspecified (3) Melena Current Visit: Yes Status: Acute Assessment and plan: Due to GI bleeding (4) Atrial fibrillation Current Visit: No Status: Acute Assessment and plan: Rite is a generally controlled. Coumadin is on hold because of GI bleeding Qualifiers: Atrial fibrillation type: chronic Qualified Code(s): I48.2 - Chronic atrial fibrillation (5) Essential hypertension Current Visit: No Status: Chronic Assessment and plan: BP is at the lower side. Hold hypertension medications (6) DVT prophylaxis Current Visit: Yes Status: Acute Assessment and plan: EPCD - Time Spent With Patient 25 - 35 minutes - Subjective Interval history: Patient is a 66-year-old female admitted for GI bleeding. Her past medical history is significant for A. fib on Coumadin, hypertension. Patient was seen and examined. She denies dizziness or lightheaded. She has no vomiting. Hemoglobin stable after transfusion. GI consult on case. Had EGD and colonoscopy, no active bleeding. Plan to discharge pt if H/H keep stable. - Constitutional Vitals: Temp Pulse Resp BP Pulse Ox 97.7 F 99 16 101/65 100 08/02/16 15:49 08/02/16 15:49 08/02/16 15:49 08/02/16 15:49 08/02/16 15:49 General appearance: Present: A&O X 3, pleasant, no acute distress, answers questions appropriately - Head Head exam: Present: atraumatic, normocephalic - Eye Eye exam: Present: PERRL, conjuntiva pink, sclera anicteric Pupils: Present: PERRL - Neck Neck exam general surgery: Present: supple, trachea midline. Absent: lymphadenopathy - Respiratory Respiratory exam: Present: CTAB. Absent: accessory muscle use, rales, rhonchi, wheezes - Cardiovascular Cardiovascular exam: Present: irregular rhythm, +S1, +S2. Absent: diastolic murmur, gallop, rubs, systolic murmur - GI/Abdominal GI/Abdominal exam: Present: normal bowel sounds, soft, no peritoneal signs. Absent: distended, tenderness - Extremities Exam Extremities exam: Present: warm, radial pulses palpable and symetrical. Absent : calf tenderness, cyanotic, pedal edema - Neurological Exam Neurological exam: Present: CN II-XII intact, oriented X3, no focal deficits. Absent: pronater drift, facial droop, speech deficit - Skin Skin exam: Present: dry, intact Internal Medicine: Result - Labs CBC & Chem 7: 08/02/16 06:32 08/02/16 06:32 Labs: Short CBC 08/02/16 Range/Units 06:32 WBC 5.2 (4.3-11.1) K/mcL Hgb 10.7 L (11.5-15.4) g/dL Hct 32.8 L (35.3-44.9) % Plt Count 140 (140-400) K/mcL Neutrophils # 3.2 (1.6-8.9) K/mcL BMP 08/02/16 06:32 Sodium 141 Potassium 3.7 Chloride 109 Carbon Dioxide 23 BUN 8 Creatinine 0.91 Glucose 90 Calcium 8.7 - ABG Interpretation ABG results: PT/INR, D-dimer PT 18.6 Seconds (9.4-12.1) H 08/01/16 09:15 - VTE Documentation of Mechanical Device: Graduated compression elastic hosiery Consult Discharge Plan - Plan Referrals: Diamond Palafox MD [Partnered Physician] - (Follow up in 1- 2 weeks) Xi Astudillo MD [Primary Care Provider] - 08/10/16 1:45 pm
[2016-08-03] MEDS: Pantoprazole 40 MG VIAL IVP SCH (05:47)
[2016-08-03 05:52] LABS: Basophils % 0.4 %; Eosinophils # 0.2 K/mcL (0.0-0.6); Eosinophils % 4.6 %; Hematocrit 31.9 % (35.3-44.9); Hemoglobin 10.2 g/dL (11.5-15.4); Immature Granulocytes % 0.6 % (0-4); Lymphocytes # 1.3 K/mcL (0.6-4.6); Lymphocytes % 24.9 %; Mean Corpuscular Volume 90.6 fL (83.0-100.0); Mean Platelet Volume 12.5 fL (9.4-12.4); Monocytes # 0.5 K/mcL (0.0-1.3); Monocytes % 9.6 %; Neutrophils # 3.1 K/mcL (1.6-8.9); Platelet Count 140 K/mcL (140-400); Red Blood Count 3.52 M/mcL (3.82-4.97); Red Cell Distribution Width 14.1 % (11.5-14.5); Segmented Neutrophils % 59.9 %
[2016-08-03 07:09] VITALS: BP 117/74
[2016-08-03] MEDS: Diltiazem CD (24hr) 180 MG CAPSULE PO SCH (11:19)
[2016-08-03] MEDS: Metoprolol 100 MG TABLET PO SCH (11:19)
--- NOTE | 2016-08-03 13:39 | Discharge Summary ---
Date of Encounter: 08/03/16 Time of Encounter: 12:00 - Discharge Diagnosis (1) Anemia due to acute blood loss Priority: Primary Status: Acute (2) GI bleed Priority: Primary Status: Acute Qualifiers: GI bleed type/associated pathology: unspecified gastrointestinal hemorrhage type Qualified Code(s): K92.2 - Gastrointestinal hemorrhage, unspecified (3) Melena Priority: Primary Status: Acute (4) Atrial fibrillation Priority: Secondary Status: Acute Qualifiers: Atrial fibrillation type: chronic Qualified Code(s): I48.2 - Chronic atrial fibrillation (5) Essential hypertension Priority: Secondary Status: Chronic (6) DVT prophylaxis Priority: Secondary Status: Acute - Discharge Medications Prescriptions: Omeprazole [PriLOSEC] 40 mg PO DAILY@0630 #30 capsule. Sucralfate [Carafate] 1 gm PO 0730,1630 #30 tablet Home Medications: Metoprolol [Lopressor] 100 mg PO BID #42 tablet 01/01/15 [Rx] Cholecalciferol (Vitamin D3) [Vitamin D3] 1,000 unit PO DAILY 05/10/15 [History] Diltiazem HCl [Diltiazem 24Hr Cd] 360 mg PO DAILY 07/30/16 [History] Omeprazole [PriLOSEC] 40 mg PO DAILY@0630 #30 capsule. 08/03/16 [Rx] Sucralfate [Carafate] 1 gm PO 0730,1630 #30 tablet 08/03/16 [Rx] Allergies/Adverse Reactions: Allergies alprazolam [From Xanax] Allergy (Verified 12/28/14 01:18) Anaphylaxis Amoxicillin [From Trimox] Allergy (Verified 07/30/16 13:58) Anaphylaxis Date of admission: 07/30/16 18:23 Primary care physician: Xi Astudillo Consults: 08/03/16 11:33 Consult to [employer] [CONS] Stat Reason for SW Consult: insurance questions Discharging clinician: Zohra Rivas Anticipated date of discharge: 08/03/16 - Patient Status Disposition: Home, Self-Care Condition: Good - Discharge Instructions Follow Up With: Diamond Palafox MD [Partnered Physician] - (Follow up in 1- 2 weeks) Xi Astudillo MD [Primary Care Provider] - 08/10/16 1:45 pm Anabella Linder MD [Partnered Physician] - 08/10/16 - Diet and Activity Activity: increase activity as tolerated Diet: low fat, low cholesterol, low salt diet Interval History: Patient states yesterday while at a bridal shower she was sitting at rest when she felt her heart racing, diaphoretic and nauseated while at rest. She denies any chest pain at that time. She also felt weak in her legs. she noticed since she has noticed black tarry stools. Hospital course: Ms. Tsai is a 66 year old female admitted for GI bleeding. She was put on nothing by mouth, IV fluid and IV PPI. Her Coumadin is on hold. GI consult was called and did endoscope and the colonoscopy. Patient was transfused 2 units of blood. After transfusion her hemoglobin level is stable. Patient with discharge home today. I saw and examined patient. She is awake alert, oriented 3. Vital signs stable. Patient was educated to hold the Coumadin for 7 days and restart, per GI recommendation. Patient is stable to discharge home. - Time Spent with Patient Total time spent providing and/or coordinating discharge services: 40 minutes Greater than 30 minutes - Constitutional Vitals: Temp Pulse Resp BP Pulse Ox 99.3 F 99 16 117/74 98 08/03/16 07:07 08/03/16 07:07 08/03/16 07:07 08/03/16 07:07 08/03/16 07:07 General appearance: Present: A&O X 3, pleasant, no acute distress, answers questions appropriately - Head Head exam: Present: atraumatic, normocephalic - Eye Eye exam: Present: PERRL, conjuntiva pink, sclera anicteric Pupils: Present: PERRL - Neck Neck exam general surgery: Present: supple, trachea midline. Absent: lymphadenopathy - Respiratory Respiratory exam: Present: CTAB. Absent: accessory muscle use, rales, rhonchi, wheezes - Cardiovascular Cardiovascular exam: Present: irregular rhythm, +S1, +S2. Absent: diastolic murmur, gallop, rubs, systolic murmur - GI/Abdominal GI/Abdominal exam: Present: normal bowel sounds, soft, no peritoneal signs. Absent: distended, tenderness - Extremities Exam Extremities exam: Present: warm, radial pulses palpable and symetrical. Absent : calf tenderness, cyanotic, pedal edema - Neurological Exam Neurological exam: Present: CN II-XII intact, oriented X3, no focal deficits. Absent: pronater drift, facial droop, speech deficit - Skin Skin exam: Present: dry, intact - VTE Documentation of Mechanical Device: Graduated compression elastic hosiery
[2016-08-03] MEDS ORDERED: Sucralfate 1 GM TABLET PO SCH (16:30)
== END 2016-08-03 16:44 | disposition home or self-care (01) | DRG 378 ==
LOC: EMEROO 09:04 → 2NENU 09:04 → SUATTDRO 18:23
PROVIDERS: ADMIT Internal Medicine; ATTEND Internal Medicine